=== PATIENT | female | born 1950 | race Caucasian/White ===

== ENCOUNTER 2022-03-17 21:33 | Inpatient (IN) ==
[2022-03-18] MEDS ORDERED: Naloxone 0.4 MG/ML INJ IVP PRN (00:29)
[2022-03-18] MEDS ORDERED: *HR* Dextrose 50 % in Water (Syg) 50 ML SYRINGE IVP PRN (00:31)
[2022-03-18] MEDS ORDERED: Dextrose 4 GM Chewable Tablets PO PRN ×2 (00:31)
[2022-03-18] MEDS ORDERED: D5% in Water 1,000 ML IVC PRN (00:31)
[2022-03-18] MEDS: Ondansetron 4 MG/2 ML VIAL IVP PRN ×2 (01:28→11:45)
[2022-03-18] MEDS: Ringers Solution, Lactated 1,000 ML IVC SCH ×2 (01:28→06:22)
[2022-03-18] MEDS ORDERED: Isovue-370 500 ML BOTTLE IVP ONE ×2 (01:58→15:42)
[2022-03-18] MEDS: Insulin LISPRO 300 UNITS/3 ML VIAL SUBQ SCH ×5 (04:37→23:56)
[2022-03-18 05:10] LABS: INR 1.2; Prothrombin Time 13.5 Seconds (9.4-12.1)
[2022-03-18 05:13] LABS: Hemoglobin 12.9 g/dL (11.5-15.4)
[2022-03-18 05:14] LABS: Hematocrit 39.9 % (35.3-44.9); Immature Platelets 5.8 % (1.1-6.1); Mean Corpuscular HGB Conc 32.3 g/dL (31.6-35.5); Mean Corpuscular Volume 89.7 fL (83.0-100.0); Mean Platelet Volume 10.8 fL (9.4-12.4); Red Blood Count 4.45 M/mcL (3.82-4.97); White Blood Count 5.3 K/mcL (4.3-11.1)
[2022-03-18 05:16] LABS: Activated Partial Thrombo Time 29.8 Seconds (26.0-36.0)
[2022-03-18 05:18] LABS: Alanine Aminotransferase 53 Units/L (7-52); Albumin 3.6 g/dL (3.5-5.7); Albumin/Globulin Ratio 1.9 (1.1-2.2); Alkaline Phosphatase 124 Units/L (34-104); Aspartate Amino Transferase 81 Units/L (13-39); BUN/Creatinine Ratio 16 (6-26); Bilirubin,Total 0.8 mg/dL (0.3-1.0); Blood Urea Nitrogen 17 mg/dL (8-23); Carbon Dioxide 30 mEq/L (23-29); Chloride 100 mEq/L (98-107); Chol/HDL Ratio 4.9 (0-4.9); Cholesterol 141 mg/dL (< 200); Globulin 1.9 g/dL (2.4-3.5); Glucose 137 mg/dL (70-105); HDL Cholesterol 29 mg/dL (40-59); LDL Cholesterol,Calculated 67 mg/dL (< 100); Osmolality,Calculated 290 (280-300); Potassium 3.8 mEq/L (3.5-5.1); Sodium 138 mEq/L (136-145); Total Protein 5.5 g/dL (6.4-8.9); Triglycerides 227 mg/dL (< 150); eGFR For African Americans > 60 (> 60); eGFR For Non-African Americans 50 (> 60)
[2022-03-18] MEDS: *HR* Heparin 5,000 UNIT/ML VIAL SQ SCH ×3 (05:54→21:35)
[2022-03-18] MEDS: Piperacillin/Tazobactam 3.375 GM in 0.9 % Sodium Chloride Mini Bag 100 ML IVPB SCH ×3 (06:22→21:36)
[2022-03-18] MEDS ORDERED: Zoledronic Acid (Zometa) 4 MG in 0.9 % Sodium Chloride 100 ML IV ONE (15:11)
[2022-03-18] MEDS: 0.9 % Sodium Chloride 1,000 ML IVC SCH (17:42)
[2022-03-18] MEDS: polyethylene glycoL 3350 17 GM POWD.PACK PO SCH (17:43)
[2022-03-18] MEDS: Mirtazapine 15 MG TABLET PO SCH (21:34)
[2022-03-19] MEDS: 0.9 % Sodium Chloride 1,000 ML IVC SCH ×2 (03:52→20:17)
[2022-03-19] MEDS ORDERED: *HR* Metoprolol 5 MG/5 ML VIAL IVP ONE ×2 (05:18→16:28)
[2022-03-19 05:32] LABS: Basophils # 0.1 K/mcL (0.0-0.2); Basophils % 1.4 %; Eosinophils % 0.5 %; Hemoglobin 12.9 g/dL (11.5-15.4); Immature Granulocytes % 7.5 % (0-4); Lymphocytes # 0.3 K/mcL (0.6-4.6); Mean Corpuscular HGB Conc 32.3 g/dL (31.6-35.5); Mean Corpuscular Hemoglobin 29.5 pg (28.0-33.3); Mean Corpuscular Volume 91.5 fL (83.0-100.0); Mean Platelet Volume 11.1 fL (9.4-12.4); Monocytes # 0.3 K/mcL (0.0-1.3); Monocytes % 7.5 %; Neutrophils # 3.1 K/mcL (1.6-8.9); Nucleated Red Blood Cells 1.7 /100 WBC (0); Platelet Count 140 K/mcL (140-400); Red Blood Count 4.37 M/mcL (3.82-4.97); Red Cell Distribution Width 15.6 % (11.5-14.5); Segmented Neutrophils % 75.1 %; White Blood Count 4.1 K/mcL (4.3-11.1)
[2022-03-19 05:40] LABS: Alanine Aminotransferase 54 Units/L (7-52); Albumin 3.6 g/dL (3.5-5.7); Albumin/Globulin Ratio 1.8 (1.1-2.2); Alkaline Phosphatase 126 Units/L (34-104); Aspartate Amino Transferase 90 Units/L (13-39); BUN/Creatinine Ratio 16 (6-26); Bilirubin,Total 1.3 mg/dL (0.3-1.0); Blood Urea Nitrogen 13 mg/dL (8-23); Calcium 9.9 mg/dL (8.6-10.3); Carbon Dioxide 24 mEq/L (23-29); Chloride 100 mEq/L (98-107); Glucose 161 mg/dL (70-105); Lipase 68 Units/L (11-82); Osmolality,Calculated 292 (280-300); Potassium 3.8 mEq/L (3.5-5.1); Sodium 139 mEq/L (136-145); Total Protein 5.6 g/dL (6.4-8.9); eGFR For African Americans > 60 (> 60); eGFR For Non-African Americans > 60 (> 60)
[2022-03-19 06:01] LABS: Platelet Estimate Normal (Normal)
[2022-03-19] MEDS: Insulin LISPRO 300 UNITS/3 ML VIAL SUBQ SCH ×4 (07:10→20:38)
[2022-03-19] MEDS: polyethylene glycoL 3350 17 GM POWD.PACK PO SCH (07:13)
[2022-03-19] MEDS ORDERED: *HR* Midazolam HCl 2 MG/2 ML VIAL ONE (07:27)
[2022-03-19] MEDS ORDERED: *HR* FentaNYL (PF) 100 MCG/2 ML VIAL ONE ×2 (07:27→08:43)
[2022-03-19] MEDS ORDERED: *HR* Propofol 200 MG/20 ML VIAL IVP ONE (07:27)
[2022-03-19] MEDS ORDERED: Lidocaine HCL 4 ML Topical Solution (Laryng-O-Jet Kit Sterile Pak) TP ONE (07:29)
[2022-03-19] MEDS ORDERED: Ondansetron 4 MG/2 ML VIAL ONE (07:29)
[2022-03-19] MEDS ORDERED: *HR* Succinylcholine 200 MG/10 ML VIAL IVP ONE (07:29)
[2022-03-19] MEDS ORDERED: Lidocaine -MPF 2% 2 ML VIAL ONE (07:29)
[2022-03-19] MEDS ORDERED: *HR* EPINEPHrine 1 MG/10 ML SYRINGE INTRATRACH PRN (09:13)
[2022-03-19] MEDS ORDERED: *HR* EPINEPHrine 1 MG/10 ML SYRINGE ONE (09:14)
[2022-03-19] MEDS ORDERED: Acetaminophen IV 1,000 MG/100 ML BAG IVPB ONE (10:50)
[2022-03-19] MEDS: Piperacillin/Tazobactam 3.375 GM in 0.9 % Sodium Chloride Mini Bag 100 ML IVPB SCH ×2 (11:07→18:10)
[2022-03-19] MEDS: allopurinoL 300 MG TABLET PO SCH ×2 (11:33→13:45)
[2022-03-19 12:29] LABS: VBG HCO3 18 mEq/L (21-27); VBG PCO2 30 mmHg (41-51); VBG PH 7.38 pH Units (7.32-7.42); VBG PO2 184 mmHg (25-50)
[2022-03-19] MEDS ORDERED: Chloraseptic Spray 177 ML BOTTLE MM PRN (13:31)
[2022-03-19] MEDS: Lactulose Oral Soln 20 GM/30 ML UDC PO SCH (13:45)
[2022-03-19 16:11] LABS: Bilirubin,Urine Negative (Negative); Blood,Urine Negative (Negative); Clarity,Urine Clear (Clear); Color,Urine Yellow (Yellow); Glucose,Urine (UA) 150 mg/dL (Normal); Ketones,Urine 60 mg/dL (Negative); Leukocyte Esterase,Urine Negative (Negative); Nitrite,Urine Negative (Negative); Protein,Urine 30 mg/dL (Neg-Trace); Specific Gravity,Urine 1.027 (1.010-1.025); Squamous Epithelial Cell,Urine Few per hpf (None-Few); Urobilinogen,Urine Normal (Normal); WBC,Urine 0-3 per hpf (0-3)
[2022-03-19] MEDS: Levalbuterol Neb 0.63 MG/3 ML IH SCH ×3 (16:20→21:49)
[2022-03-19 16:31] LABS: Appearance of Body Fluid Cloudy (Clear); Volume of Body Fluid 19 mL
[2022-03-19] MEDS: *HR* Heparin 5,000 UNIT/ML VIAL SQ SCH (20:17)
[2022-03-19] MEDS: Mirtazapine 15 MG TABLET PO SCH (20:17)
[2022-03-19] MEDS ORDERED: Dextrose 4 GM Chewable Tablets PO PRN ×2 (20:21)
[2022-03-19] MEDS ORDERED: *HR* Dextrose 50 % in Water (Syg) 50 ML SYRINGE IVP PRN (20:21)
[2022-03-19] MEDS ORDERED: D5% in Water 1,000 ML IVC PRN (20:21)
[2022-03-19] MEDS: Budesonide/Formoterol 160/4.5 1 PUFF INH IH SCH (21:50)
[2022-03-20] MEDS ORDERED: SODIUM CHLORIDE 0.9% IV SCH
[2022-03-20] MEDS ORDERED: Etoposide 200 MG in 0.9 % Sodium Chloride Excel Bg 500 ML IV SCH
[2022-03-20] MEDS ORDERED: Albuterol 2.5 MG/3 ML NEBULIZER IH PRN
[2022-03-20] MEDS ORDERED: Hydrocortisone Sodium Succ 100 MG/2 ML VIAL IVP PRN
[2022-03-20] MEDS ORDERED: Prochlorperazine 10 MG/2 ML VIAL IVP PRN
[2022-03-20] MEDS ORDERED: Fosaprepitant Dimeglumine 150 MG in 0.9 % Sodium Chloride 150 ML IVPB ONE
[2022-03-20] MEDS ORDERED: EPINEPHrine 1 MG/ML VIAL SQ PRN
[2022-03-20] MEDS ORDERED: CARBOPLATIN IV SCH
[2022-03-20] MEDS ORDERED: Dexamethasone Sodium Phos/PF 10 MG/ML VIAL IVP ONE
[2022-03-20] MEDS ORDERED: *HR* LORazepam 2 MG/ML VIAL IVP PRN
[2022-03-20] MEDS ORDERED: 0.9 % Sodium Chloride 500 ML IVC SCH
[2022-03-20] MEDS ORDERED: Famotidine 20 MG/2 ML VIAL IVP PRN
[2022-03-20 03:33] LABS: Alanine Aminotransferase 49 Units/L (7-52); Albumin 3.2 g/dL (3.5-5.7); Albumin/Globulin Ratio 1.8 (1.1-2.2); Alkaline Phosphatase 108 Units/L (34-104); Aspartate Amino Transferase 79 Units/L (13-39); BUN/Creatinine Ratio 24 (6-26); Bilirubin,Direct 0.5 mg/dL (0.0-0.2); Bilirubin,Indirect 0.4 mg/dL (0.0-1.0); Bilirubin,Total 0.9 mg/dL (0.3-1.0); Blood Urea Nitrogen 18 mg/dL (8-23); Calcium 8.7 mg/dL (8.6-10.3); Carbon Dioxide 25 mEq/L (23-29); Chloride 104 mEq/L (98-107); Globulin 1.8 g/dL (2.4-3.5); Glucose 153 mg/dL (70-105); Magnesium 1.2 mg/dL (1.6-2.6); Osmolality,Calculated 293 (280-300); Phosphorous 2.3 mg/dL (2.7-4.5); Potassium 3.2 mEq/L (3.5-5.1); Sodium 139 mEq/L (136-145); Uric Acid 4.1 mg/dL (2.3-7.6); eGFR For African Americans > 60 (> 60); eGFR For Non-African Americans > 60 (> 60)
[2022-03-20] MEDS: Levalbuterol Neb 0.63 MG/3 ML IH SCH ×4 (04:11→23:07)
[2022-03-20] MEDS: *HR* Heparin 5,000 UNIT/ML VIAL SQ SCH ×3 (05:03→22:01)
[2022-03-20] MEDS: Piperacillin/Tazobactam 3.375 GM in 0.9 % Sodium Chloride Mini Bag 100 ML IVPB SCH ×3 (05:04→22:02)
[2022-03-20] MEDS: 0.9 % Sodium Chloride 1,000 ML IVC SCH ×3 (07:41→16:42)
[2022-03-20] MEDS: Lactulose Oral Soln 20 GM/30 ML UDC PO SCH (07:42)
[2022-03-20] MEDS: polyethylene glycoL 3350 17 GM POWD.PACK PO SCH (07:42)
[2022-03-20] MEDS: Insulin LISPRO 300 UNITS/3 ML VIAL SUBQ SCH ×4 (07:43→22:03)
[2022-03-20] MEDS: allopurinoL 300 MG TABLET PO SCH (07:43)
[2022-03-20] MEDS: Budesonide/Formoterol 160/4.5 1 PUFF INH IH SCH ×2 (10:36→23:07)
[2022-03-20] MEDS ORDERED: Potassium Chloride Elixir 20 MEQ/15 ML UDC PO ONE (11:35)
[2022-03-20] MEDS: Metoprolol XL (24 HR) Succ 25 MG TAB.ER.24H PO SCH (12:07)
[2022-03-20] MEDS: Mirtazapine 15 MG TABLET PO SCH (22:01)
[2022-03-20] MEDS ORDERED: GuaiFENesin Liq 200 MG/10 ML UDC PO PRN (22:08)
[2022-03-21] MEDS ORDERED: *HR* LORazepam 2 MG/ML VIAL IVP PRN
[2022-03-21] MEDS ORDERED: SODIUM CHLORIDE 0.9% IV SCH
[2022-03-21] MEDS ORDERED: Albuterol 2.5 MG/3 ML NEBULIZER IH PRN
[2022-03-21] MEDS ORDERED: Famotidine 20 MG/2 ML VIAL IVP PRN
[2022-03-21] MEDS ORDERED: Dexamethasone Sodium Phos/PF 10 MG/ML VIAL IVP ONE
[2022-03-21] MEDS ORDERED: Etoposide 200 MG in 0.9 % Sodium Chloride Excel Bg 500 ML IV SCH
[2022-03-21] MEDS ORDERED: CARBOPLATIN IV SCH
[2022-03-21] MEDS ORDERED: Hydrocortisone Sodium Succ 100 MG/2 ML VIAL IVP PRN
[2022-03-21] MEDS ORDERED: EPINEPHrine 1 MG/ML VIAL SQ PRN
[2022-03-21] MEDS ORDERED: Fosaprepitant Dimeglumine 150 MG in 0.9 % Sodium Chloride 150 ML IVPB ONE
[2022-03-21] MEDS ORDERED: 0.9 % Sodium Chloride 500 ML IVC SCH
[2022-03-21] MEDS ORDERED: Prochlorperazine 10 MG/2 ML VIAL IVP PRN
[2022-03-21] MEDS: 0.9 % Sodium Chloride 1,000 ML IVC SCH ×2 (03:17→17:27)
[2022-03-21] MEDS: Piperacillin/Tazobactam 3.375 GM in 0.9 % Sodium Chloride Mini Bag 100 ML IVPB SCH ×4 (03:18→22:00)
[2022-03-21] MEDS: Levalbuterol Neb 0.63 MG/3 ML IH SCH ×4 (04:28→19:52)
[2022-03-21] MEDS: *HR* Heparin 5,000 UNIT/ML VIAL SQ SCH ×3 (05:26→21:26)
[2022-03-21 06:00] LABS: Basophils # 0.1 K/mcL (0.0-0.2); Basophils % 1.1 %; Eosinophils # 0.1 K/mcL (0.0-0.6); Eosinophils % 1.6 %; Hematocrit 34.4 % (35.3-44.9); Immature Granulocytes % 5.7 % (0-4); Lymphocytes # 0.9 K/mcL (0.6-4.6); Lymphocytes % 20.2 %; Mean Corpuscular HGB Conc 32.6 g/dL (31.6-35.5); Mean Corpuscular Hemoglobin 29.7 pg (28.0-33.3); Mean Corpuscular Volume 91.2 fL (83.0-100.0); Mean Platelet Volume 10.4 fL (9.4-12.4); Monocytes # 0.5 K/mcL (0.0-1.3); Monocytes % 12.2 %; Neutrophils # 2.6 K/mcL (1.6-8.9); Nucleated Red Blood Cells 1.1 /100 WBC (0); Platelet Count 106 K/mcL (140-400); Red Blood Count 3.77 M/mcL (3.82-4.97); Red Cell Distribution Width 15.9 % (11.5-14.5); Segmented Neutrophils % 59.2 %; White Blood Count 4.4 K/mcL (4.3-11.1)
[2022-03-21 06:03] LABS: Alanine Aminotransferase 62 Units/L (7-52); Albumin 3.2 g/dL (3.5-5.7); Albumin/Globulin Ratio 1.5 (1.1-2.2); Alkaline Phosphatase 122 Units/L (34-104); Aspartate Amino Transferase 99 Units/L (13-39); BUN/Creatinine Ratio 22 (6-26); Bilirubin,Direct 0.6 mg/dL (0.0-0.2); Bilirubin,Indirect 0.5 mg/dL (0.0-1.0); Bilirubin,Total 1.1 mg/dL (0.3-1.0); Blood Urea Nitrogen 12 mg/dL (8-23); Calcium 8.1 mg/dL (8.6-10.3); Carbon Dioxide 24 mEq/L (23-29); Chloride 106 mEq/L (98-107); Globulin 2.2 g/dL (2.4-3.5); Glucose 199 mg/dL (70-105); Magnesium 1.5 mg/dL (1.6-2.6); Osmolality,Calculated 291 (280-300); Phosphorous 1.3 mg/dL (2.7-4.5); Potassium 3.5 mEq/L (3.5-5.1); Sodium 138 mEq/L (136-145); Total Protein 5.4 g/dL (6.4-8.9); Uric Acid 2.8 mg/dL (2.3-7.6); eGFR For African Americans > 60 (> 60); eGFR For Non-African Americans > 60 (> 60)
[2022-03-21 06:23] LABS: Hemoglobin 11.2 g/dL (11.5-15.4)
[2022-03-21 06:42] LABS: Platelet Estimate Slight Decrease (Normal)
[2022-03-21] MEDS ORDERED: Potassium Phosphate 44 MEQ in 0.9 % Sodium Chloride 250 ML IVPB ONE (07:58)
[2022-03-21] MEDS: Metoprolol XL (24 HR) Succ 25 MG TAB.ER.24H PO SCH (08:44)
[2022-03-21] MEDS: Insulin LISPRO 300 UNITS/3 ML VIAL SUBQ SCH ×4 (08:45→21:25)
[2022-03-21] MEDS: allopurinoL 300 MG TABLET PO SCH (08:45)
[2022-03-21] MEDS: Lactulose Oral Soln 20 GM/30 ML UDC PO SCH ×2 (08:52→13:27)
[2022-03-21] MEDS: polyethylene glycoL 3350 17 GM POWD.PACK PO SCH (08:52)
[2022-03-21] MEDS: Budesonide/Formoterol 160/4.5 1 PUFF INH IH SCH ×2 (10:02→19:52)
[2022-03-21] MEDS ORDERED: 0.9 % Sodium Chloride 1,000 ML IVC SCH (12:30)
[2022-03-21] MEDS ORDERED: *HR* OxyCODONE Immed Rel 5 MG TABLET PO ONE (12:40)
[2022-03-21] MEDS ORDERED: Furosemide 20 MG TABLET PO ONE (13:33)
[2022-03-21] MEDS: Mirtazapine 15 MG TABLET PO SCH (20:36)
[2022-03-22] MEDS: Piperacillin/Tazobactam 3.375 GM in 0.9 % Sodium Chloride Mini Bag 100 ML IVPB SCH ×3 (02:11→17:59)
[2022-03-22] MEDS: *HR* Heparin 5,000 UNIT/ML VIAL SQ SCH ×3 (05:06→20:31)
[2022-03-22] MEDS: Levalbuterol Neb 0.63 MG/3 ML IH SCH ×4 (05:18→22:49)
[2022-03-22 05:29] LABS: Basophils # 0.1 K/mcL (0.0-0.2); Basophils % 1.9 %; Eosinophils # 0.1 K/mcL (0.0-0.6); Eosinophils % 2.1 %; Hematocrit 34.7 % (35.3-44.9); Hemoglobin 11.3 g/dL (11.5-15.4); Immature Granulocytes % 10.2 % (0-4); Lymphocytes # 0.9 K/mcL (0.6-4.6); Lymphocytes % 21.1 %; Mean Corpuscular HGB Conc 32.6 g/dL (31.6-35.5); Mean Corpuscular Hemoglobin 29.4 pg (28.0-33.3); Mean Corpuscular Volume 90.4 fL (83.0-100.0); Mean Platelet Volume 10.2 fL (9.4-12.4); Monocytes # 0.6 K/mcL (0.0-1.3); Monocytes % 13.7 %; Neutrophils # 2.2 K/mcL (1.6-8.9); Nucleated Red Blood Cells 1.9 /100 WBC (0); Platelet Count 116 K/mcL (140-400); Red Blood Count 3.84 M/mcL (3.82-4.97); Red Cell Distribution Width 15.9 % (11.5-14.5); White Blood Count 4.3 K/mcL (4.3-11.1)
[2022-03-22 05:44] LABS: Phosphorous 1.4 mg/dL (2.7-4.5); Uric Acid 2.5 mg/dL (2.3-7.6)
[2022-03-22 05:46] LABS: Alanine Aminotransferase 71 Units/L (7-52); Albumin 3.3 g/dL (3.5-5.7); Albumin/Globulin Ratio 1.5 (1.1-2.2); Alkaline Phosphatase 167 Units/L (34-104); Aspartate Amino Transferase 107 Units/L (13-39); BUN/Creatinine Ratio 20 (6-26); Bilirubin,Direct 0.8 mg/dL (0.0-0.2); Bilirubin,Indirect 0.6 mg/dL (0.0-1.0); Bilirubin,Total 1.4 mg/dL (0.3-1.0); Blood Urea Nitrogen 10 mg/dL (8-23); Calcium 8.1 mg/dL (8.6-10.3); Carbon Dioxide 23 mEq/L (23-29); Chloride 104 mEq/L (98-107); Globulin 2.2 g/dL (2.4-3.5); Glucose 201 mg/dL (70-105); Magnesium 1.6 mg/dL (1.6-2.6); Osmolality,Calculated 289 (280-300); Potassium 3.5 mEq/L (3.5-5.1); Sodium 137 mEq/L (136-145); Total Protein 5.5 g/dL (6.4-8.9); eGFR For African Americans > 60 (> 60); eGFR For Non-African Americans > 60 (> 60)
[2022-03-22 06:16] LABS: Platelet Estimate Normal (Normal)
[2022-03-22] MEDS: Budesonide/Formoterol 160/4.5 1 PUFF INH IH SCH ×2 (08:49→22:49)
[2022-03-22] MEDS: Insulin LISPRO 300 UNITS/3 ML VIAL SUBQ SCH ×4 (09:03→21:07)
[2022-03-22] MEDS: Insulin DETEMIR 100 UNIT/ML X5UNITS SUBQ SCH (09:03)
[2022-03-22] MEDS: Lactulose Oral Soln 20 GM/30 ML UDC PO SCH (09:03)
[2022-03-22] MEDS: allopurinoL 300 MG TABLET PO SCH (09:04)
[2022-03-22] MEDS: Metoprolol XL (24 HR) Succ 25 MG TAB.ER.24H PO SCH (09:04)
[2022-03-22] MEDS: Magnesium Oxide 400 MG TABLET PO SCH (09:04)
[2022-03-22] MEDS: polyethylene glycoL 3350 17 GM POWD.PACK PO SCH (09:04)
[2022-03-22] MEDS ORDERED: Ipratropium Neb 0.5 MG NEBULIZER IH PRN (10:28)
[2022-03-22] MEDS: 0.9 % Sodium Chloride 1,000 ML IVC SCH (13:18)
[2022-03-22] MEDS: Mirtazapine 15 MG TABLET PO SCH (20:31)
[2022-03-23] MEDS: Piperacillin/Tazobactam 3.375 GM in 0.9 % Sodium Chloride Mini Bag 100 ML IVPB SCH ×3 (02:40→17:16)
[2022-03-23 02:48] LABS: Basophils % 0.7 %; Eosinophils # 0.1 K/mcL (0.0-0.6); Hematocrit 33.2 % (35.3-44.9); Hemoglobin 11.1 g/dL (11.5-15.4); Immature Granulocytes % 10.9 % (0-4); Lymphocytes # 0.9 K/mcL (0.6-4.6); Lymphocytes % 20.8 %; Mean Corpuscular HGB Conc 33.4 g/dL (31.6-35.5); Mean Corpuscular Hemoglobin 29.7 pg (28.0-33.3); Mean Corpuscular Volume 88.8 fL (83.0-100.0); Mean Platelet Volume 10.5 fL (9.4-12.4); Monocytes # 0.5 K/mcL (0.0-1.3); Monocytes % 11.8 %; Neutrophils # 2.4 K/mcL (1.6-8.9); Nucleated Red Blood Cells 1.8 /100 WBC (0); Platelet Count 118 K/mcL (140-400); Red Blood Count 3.74 M/mcL (3.82-4.97); Red Cell Distribution Width 15.8 % (11.5-14.5); Segmented Neutrophils % 53.8 %; White Blood Count 4.5 K/mcL (4.3-11.1)
[2022-03-23 02:56] LABS: Phosphorous 1.5 mg/dL (2.7-4.5); Uric Acid 2.2 mg/dL (2.3-7.6)
[2022-03-23 02:57] LABS: Platelet Estimate Slight Decrease (Normal)
[2022-03-23 02:58] LABS: Alanine Aminotransferase 56 Units/L (7-52); Albumin 2.5 g/dL (3.5-5.7); Albumin/Globulin Ratio 1.4 (1.1-2.2); Alkaline Phosphatase 169 Units/L (34-104); Aspartate Amino Transferase 93 Units/L (13-39); BUN/Creatinine Ratio 26 (6-26); Bilirubin,Direct 0.6 mg/dL (0.0-0.2); Bilirubin,Indirect 0.7 mg/dL (0.0-1.0); Bilirubin,Total 1.3 mg/dL (0.3-1.0); Blood Urea Nitrogen 7 mg/dL (8-23); Calcium 6.3 mg/dL (8.6-10.3); Carbon Dioxide 19 mEq/L (23-29); Chloride 113 mEq/L (98-107); Globulin 1.8 g/dL (2.4-3.5); Glucose 173 mg/dL (70-105); Osmolality,Calculated 292 (280-300); Potassium 2.9 mEq/L (3.5-5.1); Sodium 140 mEq/L (136-145); Total Protein 4.3 g/dL (6.4-8.9); eGFR For African Americans > 60 (> 60); eGFR For Non-African Americans > 60 (> 60)
[2022-03-23] MEDS: Levalbuterol Neb 0.63 MG/3 ML IH SCH ×4 (04:08→22:19)
[2022-03-23] MEDS: *HR* Heparin 5,000 UNIT/ML VIAL SQ SCH ×3 (04:57→20:37)
[2022-03-23] MEDS ORDERED: Calcium Gluconate 1gm/50mL 1 GM/50 ML BAG IVPB ONE (07:19)
[2022-03-23] MEDS: polyethylene glycoL 3350 17 GM POWD.PACK PO SCH (07:55)
[2022-03-23] MEDS: Metoprolol XL (24 HR) Succ 25 MG TAB.ER.24H PO SCH (07:56)
[2022-03-23] MEDS: Lactulose Oral Soln 20 GM/30 ML UDC PO SCH (07:56)
[2022-03-23] MEDS: allopurinoL 300 MG TABLET PO SCH (07:56)
[2022-03-23] MEDS: Insulin LISPRO 300 UNITS/3 ML VIAL SUBQ SCH ×4 (08:16→20:40)
[2022-03-23] MEDS: Magnesium Oxide 400 MG TABLET PO SCH (08:50)
[2022-03-23] MEDS: Budesonide/Formoterol 160/4.5 1 PUFF INH IH SCH ×2 (10:17→22:19)
[2022-03-23] MEDS: Insulin DETEMIR 100 UNIT/ML X5UNITS SUBQ SCH (12:45)
[2022-03-23] MEDS: 0.9 % Sodium Chloride 1,000 ML IVC SCH (14:19)
[2022-03-23] MEDS ORDERED: Potassium Chloride Elixir 20 MEQ/15 ML UDC PO ONE (15:00)
[2022-03-23] MEDS: Mirtazapine 15 MG TABLET PO SCH (20:37)
[2022-03-24] MEDS ORDERED: Etoposide 210 MG in 0.9 % Sodium Chloride Excel Bg 500 ML IV SCH
[2022-03-24] MEDS ORDERED: SODIUM CHLORIDE EXCEL BG IVPB SCH
[2022-03-24] MEDS ORDERED: CARBOPLATIN IV SCH
[2022-03-24] MEDS ORDERED: SODIUM CHLORIDE 0.9% IV SCH
[2022-03-24] MEDS ORDERED: Etoposide 200 MG in 0.9 % Sodium Chloride Excel Bg 500 ML IV SCH
[2022-03-24] MEDS ORDERED: SODIUM CHLORIDE IVPB SCH
[2022-03-24] MEDS ORDERED: ETOPOSIDE IVPB SCH
[2022-03-24 01:12] LABS: Basophils % 0.9 %; Eosinophils # 0.1 K/mcL (0.0-0.6); Eosinophils % 1.9 %; Hematocrit 34.8 % (35.3-44.9); Hemoglobin 11.5 g/dL (11.5-15.4); Immature Granulocytes % 10.2 % (0-4); Lymphocytes % 22.7 %; Mean Corpuscular Hemoglobin 29.9 pg (28.0-33.3); Mean Corpuscular Volume 90.4 fL (83.0-100.0); Mean Platelet Volume 10.2 fL (9.4-12.4); Monocytes # 0.7 K/mcL (0.0-1.3); Monocytes % 14.5 %; Neutrophils # 2.3 K/mcL (1.6-8.9); Nucleated Red Blood Cells 1.7 /100 WBC (0); Platelet Count 115 K/mcL (140-400); Red Blood Count 3.85 M/mcL (3.82-4.97); Red Cell Distribution Width 16.1 % (11.5-14.5); Segmented Neutrophils % 49.8 %; White Blood Count 4.6 K/mcL (4.3-11.1)
[2022-03-24 01:29] LABS: Magnesium 1.4 mg/dL (1.6-2.6); Phosphorous 1.9 mg/dL (2.7-4.5); Uric Acid 2.1 mg/dL (2.3-7.6)
[2022-03-24 01:31] LABS: Alanine Aminotransferase 80 Units/L (7-52); Albumin 3.2 g/dL (3.5-5.7); Albumin/Globulin Ratio 1.3 (1.1-2.2); Alkaline Phosphatase 288 Units/L (34-104); Aspartate Amino Transferase 138 Units/L (13-39); BUN/Creatinine Ratio 20 (6-26); Bilirubin,Direct 1.1 mg/dL (0.0-0.2); Bilirubin,Indirect 0.7 mg/dL (0.0-1.0); Bilirubin,Total 1.8 mg/dL (0.3-1.0); Blood Urea Nitrogen 8 mg/dL (8-23); Calcium 9.5 mg/dL (8.6-10.3); Carbon Dioxide 24 mEq/L (23-29); Chloride 106 mEq/L (98-107); Globulin 2.5 g/dL (2.4-3.5); Glucose 178 mg/dL (70-105); Osmolality,Calculated 287 (280-300); Potassium 4.3 mEq/L (3.5-5.1); Sodium 137 mEq/L (136-145); Total Protein 5.7 g/dL (6.4-8.9); eGFR For African Americans > 60 (> 60); eGFR For Non-African Americans > 60 (> 60)
[2022-03-24] MEDS: Piperacillin/Tazobactam 3.375 GM in 0.9 % Sodium Chloride Mini Bag 100 ML IVPB SCH ×3 (02:08→18:07)
[2022-03-24 02:28] LABS: Platelet Estimate Slight Decrease (Normal)
[2022-03-24 02:29] LABS: Hypochromasia Present (Not Present); Polychromasia 1+ (Not Present)
[2022-03-24] MEDS: Levalbuterol Neb 0.63 MG/3 ML IH SCH ×4 (03:35→21:41)
[2022-03-24] MEDS: Lactulose Oral Soln 20 GM/30 ML UDC PO SCH ×2 (08:06→12:37)
[2022-03-24] MEDS: Magnesium Oxide 400 MG TABLET PO SCH (08:07)
[2022-03-24] MEDS: allopurinoL 300 MG TABLET PO SCH (08:07)
[2022-03-24] MEDS: Metoprolol XL (24 HR) Succ 25 MG TAB.ER.24H PO SCH (08:08)
[2022-03-24] MEDS: Insulin LISPRO 300 UNITS/3 ML VIAL SUBQ SCH ×4 (08:23→21:07)
[2022-03-24] MEDS: Insulin DETEMIR 100 UNIT/ML X5UNITS SUBQ SCH (08:23)
[2022-03-24] MEDS: polyethylene glycoL 3350 17 GM POWD.PACK PO SCH (08:24)
[2022-03-24] MEDS: Budesonide/Formoterol 160/4.5 1 PUFF INH IH SCH ×2 (11:02→21:41)
[2022-03-24] MEDS ORDERED: Fosaprepitant Dimeglumine 150 MG in 0.9 % Sodium Chloride 250 ML IVPB SCH (11:15)
[2022-03-24] MEDS ORDERED: Prochlorperazine 10 MG/2 ML VIAL IVP PRN (11:16)
[2022-03-24] MEDS ORDERED: EPINEPHrine 1 MG/ML VIAL SQ PRN (11:16)
[2022-03-24] MEDS ORDERED: *HR* LORazepam 2 MG/ML VIAL IVP PRN (11:16)
[2022-03-24] MEDS ORDERED: Albuterol 2.5 MG/3 ML NEBULIZER IH PRN (11:17)
[2022-03-24] MEDS ORDERED: Hydrocortisone Sodium Succ 100 MG/2 ML VIAL IVP PRN (11:17)
[2022-03-24] MEDS ORDERED: Famotidine 20 MG/2 ML VIAL IVP PRN (11:17)
[2022-03-24] MEDS ORDERED: 0.9 % Sodium Chloride 500 ML IVC SCH (11:30)
[2022-03-24] MEDS ORDERED: Dexamethasone Sodium Phos/PF 10 MG/ML VIAL IVP SCH (11:30)
[2022-03-24] MEDS ORDERED: CARBOPLATIN IVPB SCH (12:15)
[2022-03-24] MEDS ORDERED: SODIUM CHLORIDE 0.9% IVPB SCH (12:15)
[2022-03-24] MEDS: *HR* Heparin 5,000 UNIT/ML VIAL SQ SCH ×3 (12:36→22:58)
[2022-03-24] MEDS: 0.9 % Sodium Chloride 1,000 ML IVC SCH (18:04)
[2022-03-24] MEDS: Mirtazapine 15 MG TABLET PO SCH (20:44)
[2022-03-25 01:42] LABS: Hematocrit 33.4 % (35.3-44.9); Mean Corpuscular HGB Conc 32.9 g/dL (31.6-35.5); Mean Corpuscular Hemoglobin 29.7 pg (28.0-33.3); Mean Corpuscular Volume 90.3 fL (83.0-100.0); Mean Platelet Volume 10.8 fL (9.4-12.4); Monocytes # 0.5 K/mcL (0.0-1.3); Platelet Count 115 K/mcL (140-400); White Blood Count 5.2 K/mcL (4.3-11.1)
[2022-03-25 02:00] LABS: Alanine Aminotransferase 77 Units/L (7-52); Albumin 3.1 g/dL (3.5-5.7); Albumin/Globulin Ratio 1.3 (1.1-2.2); Alkaline Phosphatase 322 Units/L (34-104); Aspartate Amino Transferase 119 Units/L (13-39); BUN/Creatinine Ratio 33 (6-26); Bilirubin,Direct 1.1 mg/dL (0.0-0.2); Bilirubin,Indirect 0.7 mg/dL (0.0-1.0); Bilirubin,Total 1.8 mg/dL (0.3-1.0); Blood Urea Nitrogen 14 mg/dL (8-23); Calcium 8.9 mg/dL (8.6-10.3); Carbon Dioxide 24 mEq/L (23-29); Chloride 103 mEq/L (98-107); Globulin 2.4 g/dL (2.4-3.5); Glucose 244 mg/dL (70-105); Osmolality,Calculated 295 (280-300); Sodium 138 mEq/L (136-145); Total Protein 5.5 g/dL (6.4-8.9); eGFR For African Americans > 60 (> 60); eGFR For Non-African Americans > 60 (> 60)
[2022-03-25 02:02] LABS: Phosphorous 3.9 mg/dL (2.7-4.5); Uric Acid 2.7 mg/dL (2.3-7.6)
[2022-03-25 02:11] LABS: Platelet Estimate Slight Decrease (Normal)
[2022-03-25 02:13] LABS: Lymphocytes # 1.6 K/mcL (0.6-4.6); Neutrophils # 3.1 K/mcL (1.6-8.9)
[2022-03-25] MEDS: Levalbuterol Neb 0.63 MG/3 ML IH SCH ×4 (04:00→21:55)
[2022-03-25] MEDS: *HR* Heparin 5,000 UNIT/ML VIAL SQ SCH ×3 (07:17→22:34)
[2022-03-25] MEDS: Insulin LISPRO 300 UNITS/3 ML VIAL SUBQ SCH ×4 (09:16→20:37)
[2022-03-25] MEDS: Insulin DETEMIR 100 UNIT/ML X5UNITS SUBQ SCH (09:17)
[2022-03-25] MEDS: polyethylene glycoL 3350 17 GM POWD.PACK PO SCH (09:17)
[2022-03-25] MEDS: Lactulose Oral Soln 20 GM/30 ML UDC PO SCH (09:18)
[2022-03-25] MEDS: allopurinoL 300 MG TABLET PO SCH (09:18)
[2022-03-25] MEDS: Metoprolol XL (24 HR) Succ 25 MG TAB.ER.24H PO SCH (09:19)
[2022-03-25] MEDS: Magnesium Oxide 400 MG TABLET PO SCH (09:19)
[2022-03-25] MEDS: Budesonide/Formoterol 160/4.5 1 PUFF INH IH SCH ×2 (10:16→21:55)
[2022-03-25] MEDS ORDERED: SODIUM CHLORIDE IVPB SCH (11:00)
[2022-03-25] MEDS ORDERED: ETOPOSIDE IVPB SCH (11:00)
[2022-03-25] MEDS ORDERED: SODIUM CHLORIDE EXCEL BG IVPB SCH (11:00)
[2022-03-25] MEDS ORDERED: *HR* LORazepam 2 MG/ML VIAL IVP PRN (11:02)
[2022-03-25] MEDS ORDERED: EPINEPHrine 1 MG/ML VIAL SQ PRN (11:03)
[2022-03-25] MEDS ORDERED: Albuterol 2.5 MG/3 ML NEBULIZER IH PRN (11:03)
[2022-03-25] MEDS ORDERED: Hydrocortisone Sodium Succ 100 MG/2 ML VIAL IVP PRN (11:03)
[2022-03-25] MEDS ORDERED: Famotidine 20 MG/2 ML VIAL IVP PRN (11:04)
[2022-03-25] MEDS ORDERED: Prochlorperazine 10 MG/2 ML VIAL IVP PRN (11:05)
[2022-03-25] MEDS: 0.9 % Sodium Chloride 1,000 ML IVC SCH (11:12)
[2022-03-25] MEDS ORDERED: Dexamethasone Sodium Phos/PF 10 MG/ML VIAL IVP SCH (11:15)
[2022-03-25] MEDS ORDERED: 0.9 % Sodium Chloride 500 ML IVC SCH (11:15)
[2022-03-25] MEDS ORDERED: Furosemide 20 MG TABLET PO ONE (14:16)
[2022-03-25] MEDS: Mirtazapine 15 MG TABLET PO SCH (20:39)
[2022-03-26] MEDS ORDERED: Prochlorperazine 10 MG/2 ML VIAL IVP PRN
[2022-03-26] MEDS ORDERED: Albuterol 2.5 MG/3 ML NEBULIZER IH PRN
[2022-03-26] MEDS ORDERED: *HR* LORazepam 2 MG/ML VIAL IVP PRN
[2022-03-26] MEDS ORDERED: Hydrocortisone Sodium Succ 100 MG/2 ML VIAL IVP PRN
[2022-03-26] MEDS ORDERED: 0.9 % Sodium Chloride 500 ML IVC SCH
[2022-03-26] MEDS ORDERED: EPINEPHrine 1 MG/ML VIAL SQ PRN
[2022-03-26] MEDS ORDERED: Famotidine 20 MG/2 ML VIAL IVP PRN
[2022-03-26 02:36] LABS: Basophils % 0.5 %; Eosinophils # 0.1 K/mcL (0.0-0.6); Eosinophils % 1.1 %; Hematocrit 32.1 % (35.3-44.9); Hemoglobin 10.5 g/dL (11.5-15.4); Immature Granulocytes % 8.7 % (0-4); Lymphocytes # 0.7 K/mcL (0.6-4.6); Lymphocytes % 11.8 %; Mean Corpuscular HGB Conc 32.7 g/dL (31.6-35.5); Mean Corpuscular Hemoglobin 29.4 pg (28.0-33.3); Mean Corpuscular Volume 89.9 fL (83.0-100.0); Mean Platelet Volume 11.2 fL (9.4-12.4); Monocytes # 0.3 K/mcL (0.0-1.3); Nucleated Red Blood Cells 0.4 /100 WBC (0); Platelet Count 113 K/mcL (140-400); Red Blood Count 3.57 M/mcL (3.82-4.97); Red Cell Distribution Width 16.3 % (11.5-14.5); Segmented Neutrophils % 71.9 %; White Blood Count 5.5 K/mcL (4.3-11.1)
[2022-03-26 02:40] LABS: Platelet Estimate Slight Decrease (Normal)
[2022-03-26 02:57] LABS: Alanine Aminotransferase 69 Units/L (7-52); Albumin/Globulin Ratio 1.3 (1.1-2.2); Alkaline Phosphatase 333 Units/L (34-104); Aspartate Amino Transferase 104 Units/L (13-39); BUN/Creatinine Ratio 42 (6-26); Bilirubin,Direct 0.7 mg/dL (0.0-0.2); Bilirubin,Indirect 0.6 mg/dL (0.0-1.0); Bilirubin,Total 1.3 mg/dL (0.3-1.0); Blood Urea Nitrogen 21 mg/dL (8-23); Calcium 8.4 mg/dL (8.6-10.3); Carbon Dioxide 23 mEq/L (23-29); Chloride 104 mEq/L (98-107); Globulin 2.3 g/dL (2.4-3.5); Glucose 266 mg/dL (70-105); Osmolality,Calculated 294 (280-300); Potassium 4.7 mEq/L (3.5-5.1); Sodium 136 mEq/L (136-145); Total Protein 5.3 g/dL (6.4-8.9); eGFR For African Americans > 60 (> 60); eGFR For Non-African Americans > 60 (> 60)
[2022-03-26] MEDS: Levalbuterol Neb 0.63 MG/3 ML IH SCH ×4 (03:41→20:07)
[2022-03-26 03:52] LABS: Magnesium 1.8 mg/dL (1.6-2.6); Phosphorous 3.7 mg/dL (2.7-4.5); Uric Acid 3.9 mg/dL (2.3-7.6)
[2022-03-26] MEDS: 0.9 % Sodium Chloride 1,000 ML IVC SCH (05:16)
[2022-03-26] MEDS: *HR* Heparin 5,000 UNIT/ML VIAL SQ SCH ×3 (05:18→21:30)
[2022-03-26] MEDS: Insulin DETEMIR 100 UNIT/ML X5UNITS SUBQ SCH (08:26)
[2022-03-26] MEDS: Lactulose Oral Soln 20 GM/30 ML UDC PO SCH (08:26)
[2022-03-26] MEDS: Insulin LISPRO 300 UNITS/3 ML VIAL SUBQ SCH ×4 (08:26→21:32)
[2022-03-26] MEDS: Magnesium Oxide 400 MG TABLET PO SCH (08:26)
[2022-03-26] MEDS: polyethylene glycoL 3350 17 GM POWD.PACK PO SCH (08:27)
[2022-03-26] MEDS: Metoprolol XL (24 HR) Succ 25 MG TAB.ER.24H PO SCH (08:27)
[2022-03-26] MEDS: allopurinoL 300 MG TABLET PO SCH (08:27)
[2022-03-26] MEDS: Budesonide/Formoterol 160/4.5 1 PUFF INH IH SCH ×2 (09:47→20:06)
[2022-03-26] MEDS ORDERED: Dexamethasone Sodium Phos/PF 10 MG/ML VIAL IVP SCH (12:30)
[2022-03-26] MEDS ORDERED: ETOPOSIDE IVPB SCH (13:00)
[2022-03-26] MEDS ORDERED: SODIUM CHLORIDE IVPB SCH (13:00)
[2022-03-26] MEDS ORDERED: SODIUM CHLORIDE EXCEL BG IVPB SCH (13:00)
[2022-03-26] MEDS ORDERED: Furosemide 20 MG/2 ML VIAL IVP ONE (14:34)
[2022-03-26] MEDS: Mirtazapine 15 MG TABLET PO SCH (21:30)
[2022-03-27 02:56] LABS: Hematocrit 34.1 % (35.3-44.9); Hemoglobin 10.9 g/dL (11.5-15.4); Mean Corpuscular Hemoglobin 29.5 pg (28.0-33.3); Mean Corpuscular Volume 92.2 fL (83.0-100.0); Monocytes # 0.2 K/mcL (0.0-1.3); Platelet Count 104 K/mcL (140-400); Red Cell Distribution Width 16.3 % (11.5-14.5); White Blood Count 4.5 K/mcL (4.3-11.1)
[2022-03-27] MEDS: Levalbuterol Neb 0.63 MG/3 ML IH SCH ×2 (03:37→10:18)
[2022-03-27 04:06] LABS: Lymphocytes # 0.4 K/mcL (0.6-4.6); Platelet Estimate Slight Decrease (Normal)
[2022-03-27] MEDS: *HR* Heparin 5,000 UNIT/ML VIAL SQ SCH ×2 (05:51→12:59)
[2022-03-27] MEDS: 0.9 % Sodium Chloride 1,000 ML IVC SCH (05:51)
[2022-03-27] MEDS: polyethylene glycoL 3350 17 GM POWD.PACK PO SCH (07:27)
[2022-03-27] MEDS: Metoprolol XL (24 HR) Succ 25 MG TAB.ER.24H PO SCH (07:43)
[2022-03-27] MEDS: Insulin DETEMIR 100 UNIT/ML X5UNITS SUBQ SCH (07:43)
[2022-03-27] MEDS: allopurinoL 300 MG TABLET PO SCH (07:43)
[2022-03-27] MEDS: Lactulose Oral Soln 20 GM/30 ML UDC PO SCH (07:43)
[2022-03-27] MEDS: Insulin LISPRO 300 UNITS/3 ML VIAL SUBQ SCH ×2 (07:43→12:03)
[2022-03-27] MEDS: Magnesium Oxide 400 MG TABLET PO SCH (07:44)
[2022-03-27] MEDS: Budesonide/Formoterol 160/4.5 1 PUFF INH IH SCH (10:18)
[2022-03-27 11:09] VITALS: BP 148/75; PULSE 81; TEMP 98
[2022-03-27 11:52] VITALS: O2SAT 95
[2022-03-27 13:08] LABS: Alanine Aminotransferase 66 Units/L (7-52); Albumin 3.1 g/dL (3.5-5.7); Albumin/Globulin Ratio 1.3 (1.1-2.2); Alkaline Phosphatase 351 Units/L (34-104); Aspartate Amino Transferase 105 Units/L (13-39); BUN/Creatinine Ratio 42 (6-26); Bilirubin,Total 1.1 mg/dL (0.3-1.0); Blood Urea Nitrogen 20 mg/dL (8-23); Calcium 8.1 mg/dL (8.6-10.3); Carbon Dioxide 24 mEq/L (23-29); Chloride 106 mEq/L (98-107); Globulin 2.3 g/dL (2.4-3.5); Glucose 199 mg/dL (70-105); Magnesium 1.8 mg/dL (1.6-2.6); Osmolality,Calculated 294 (280-300); Phosphorous 3.2 mg/dL (2.7-4.5); Potassium 4.2 mEq/L (3.5-5.1); Sodium 138 mEq/L (136-145); Total Protein 5.4 g/dL (6.4-8.9); Uric Acid 4.5 mg/dL (2.3-7.6); eGFR For African Americans > 60 (> 60); eGFR For Non-African Americans > 60 (> 60)
== END 2022-03-27 15:19 | disposition home health service (06) | DRG 180 ==
LOC: 3ANU → SUATTDRO 03-18 00:29 → 3ANU 03-24 17:09
PROVIDERS: ADMIT Internal Medicine; ATTEND Family Medicine